=== PATIENT | female | born 1985 | race American Indian/Alaskan Native ===

== ENCOUNTER 2016-11-15 18:55 | Emergency (ER) | payer MEDICAID ==
[2016-11-15 19:41] VITALS: BP 112/59
== END 2016-11-16 00:45 | disposition left against medical advice (07) ==
LOC: ED 18:55
DX: R31.9 Hematuria, unspecified (principal); M54.5 Low back pain; R10.30 Lower abdominal pain, unspecified; Z53.21 Procedure and treatment not carried out due to patient leaving prior to being seen by health care provider